=== PATIENT | female | born 1980 | race American Indian/Alaskan Native ===

== ENCOUNTER 2017-07-26 13:45 | Emergency (ER) | payer MEDICAID ==
[2017-07-26 13:53] VITALS: BP 128/92
--- NOTE | 2017-07-26 15:06 | Emergency Department Report ---
Blank Doc - Documentation Documentation: Is 36 showed left neck female who is who states that she has some swelling at her rectum. Patient states something swollen she needs to have this checked out. Patient states she is told this to her [facility]IOR [employer] before but has not had any results as far as treatment.
--- NOTE | 2017-07-26 15:09 | Emergency Department Report ---
ED Female HPI - General Chief complaint: Urogenital-Female Stated complaint: ANAL WARTS Time Seen by Provider: 07/26/17 14:54 Source: patient Mode of arrival: Ambulatory Limitations: No Limitations - History of Present Illness Initial comments: This is a 36-year-old female who presents with complaints of anal warts or hemorrhoids for 3 months. Patient states she went to [facility] on Sunday and they diagnosed her with anal warts. The PROJECT PRODUCT MA[employer]GER had to order equipment to remove them and told patient she will be able to remove them when equipment arrives. Patient reports pain is unbearable and 10/10 on pain scale. She noticed warts are larger than original presentation. She wanted to get a second opinion and possibly have them removed. Admits to small amount of blood that is intermittent. MD Complaint: other (anal warts or hemorroids) -: month(s) (3 months) Location: perineum Radiation: non-radiating Severity: severe Severity scale (0 -10): 8 Quality: aching Consistency: intermittent Improves with: none Worsens with: other (defication) Are you Now?: Yes Last Menstrual Period: 01/24/17 EDC: 10/31/17 Associated Symptoms: denies other symptoms - Related Data Sexually active: Yes : 4 Para: 4 (set of twins) A: 0 Previous Rx's Medication Instructions Recorded Last Taken Type Lidocaine [Lidocaine GEL] 30 gm TP QID PRN #1 tube 07/26/17 Unknown Rx Allergies Allergy/AdvReac Type Severity Reaction Status Date / Time No Known Allergies Allergy Unverified 07/26/17 13:48 ED Review of Systems ROS: Stated complaint: ANAL WARTS Other details as noted in HPI Constitutional: denies: chills, fever Respiratory: denies: cough, shortness of breath, wheezing Cardiovascular: denies: chest pain, palpitations, edema, syncope Gastrointestinal: other. denies: abdominal pain, nausea, vomiting, diarrhea, constipation Genitourinary: denies: urgency, dysuria, discharge Skin: lesions. denies: change in color, change in hair/nails, pruritus ED Past Medical Hx - Past Medical History Previous Medical History?: Yes Additional medical history: Vaginal delivery x 3 - Surgical History Past Surgical History?: No - Social History Smoking Status: Never Smoker Substance Use Type: Prescribed - Medications Home Medications: Home Medications Medication Instructions Recorded Confirmed Last Taken Type Lidocaine [Lidocaine GEL] 30 gm TP QID PRN #1 tube 07/26/17 Unknown Rx ED Physical Exam - General Limitations: No Limitations General appearance: alert, in no apparent distress - Respiratory Respiratory exam: Present: normal lung sounds bilaterally. Absent: respiratory distress - Cardiovascular Cardiovascular Exam: Present: regular rate, normal rhythm, normal heart sounds. Absent: systolic murmur, diastolic murmur, rubs, gallop - Rectal Rectal exam: Present: other (multiple cauliflower like masses, soft, flesh color ) - Neurological Exam Neurological exam: Present: alert, oriented X3, normal gait - Psychiatric Psychiatric exam: Present: normal affect, normal mood - Skin Skin exam: Present: warm, dry, intact, normal color. Absent: rash ED Course Vital Signs 07/26/17 13:49 Temperature 98.4 F Pulse Rate 95 H Respiratory 18 Rate Blood Pressure 128/92 O2 Sat by Pulse 100 Oximetry ED Medical Decision Making - Medical Decision Making This is a 36 y.o. female presents with anal warts for 3 months. She is 24 weeks gestation. Patient was examined by me. Recently diagnosed by [facility] on Sunday. They are ordering material to remove them. Start lidocaine gel for pain relief on condyloma acuminata. Discharged home in stable condition. F/U with [facility] or [facility]. Critical care attestation.: If time is entered above; I have spent that time in minutes in the direct care of this critically ill patient, excluding procedure time. ED Disposition Clinical Impression: Condyloma acuminata Disposition: - TO HOME OR SELFCARE Is pt being admited?: No Does the pt Need Aspirin: No Condition: Stable Instructions: Genital Warts (ED) Additional Instructions: Follow up with [facility] or [facility] for removal of warts. Apply lidocaine gel to area to relieve pain fore times a day. Prescriptions: Lidocaine [Lidocaine GEL] 30 gm TP QID PRN #1 tube PRN Reason: Pain Referrals: TANYA GONZALES MD [Primary Care Provider] - 3-5 Days GIACOMO CISNEROS MD [Staff Physician] - 3-5 Days [facility] [Provider Group] - 3-5 Days [facility] [Provider Group] - 3-5 Days Forms: Work/School Release Form(ED) Time of Disposition: 15:31 Print Language: COMORAN
== END 2017-07-26 15:56 | disposition home or self-care (01) ==
LOC: ED 13:45
DX: O98.312 Other infections with a predominantly sexual mode of transmission complicating pregnancy, second trimester (principal); A63.0 Anogenital (venereal) warts; Z3A.24 24 weeks gestation of pregnancy
CPT/HCPCS: 99282

== ENCOUNTER 2017-10-11 20:19 | Outpatient (CLI) | payer OTHER ==
[2017-10-11] MEDS ORDERED: LACTATED RINGERS 500 ML IV ONE (20:24)
--- NOTE | 2017-10-11 21:07 | Event Note ---
36yo JEFFREY 11/14/17 35 1/7 weeks presents complaining of abdominal discomfort and constipation. She states she feels movement and denies loss of fluid and vaginal bleeding. She has a history of chronic HTN. She has no PIH symptoms. She does describe an episode of melena with straining bowel movement today. Vitals stable BP 130/89 FHT Category I FHT 145 Occasional contractions Cervix FT/50/high Plan 1. UA 2. Monitor for signs of labor 3. Recommend PO hydration, stool softner. 4. Discharge home with labor precautions.
[2017-10-11 21:11] LABS: Bilirubin,Urine NEG (Negative); Blood,Urine NEG (Negative); Color,Urine Yellow (Yellow); Mucus,Urine FEW /HPF; Protein,Urine <15 mg/dL mg/dL (Negative); Urobilinogen,Urine < 2.0 mg/dL (<2.0)
[2017-10-11 21:20] VITALS: BP 152/64
== END 2017-10-11 21:30 | disposition home or self-care (01) ==
LOC: TRG 20:19
PROVIDERS: ATTEND Obstetrics & Gynecology
DX: O26.893 Other specified pregnancy related conditions, third trimester (principal); O16.3 Unspecified maternal hypertension, third trimester; Z3A.36 36 weeks gestation of pregnancy; R10.9 Unspecified abdominal pain
CPT/HCPCS: 59025; 81001

== ENCOUNTER 2017-11-02 04:28 | Inpatient (IN) | payer OTHER ==
--- NOTE | 2017-11-02 05:28 | History and Physical Report ---
History of Present Illness Chief complaint: abdominal pain History of present illness: 37yo 38 2/7 weeks presents to L&D complaining of abdominal pain. She states "I wanted to come get checked before I went to work". Her BPs were noted to be 120-150/70-90s. She complains of a headache starting one day ago. She states she feels her vision seems blurry but it may be because she wasn't wearing her contacts. She reports good movement and denies loss of fluid or vaginal bleeding. 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 - Obstetrical History : 4 Medications and Allergies Allergies Allergy/AdvReac Type Severity Reaction Status Date / Time No Known Allergies Allergy Verified 10/11/17 20:26 Home Medications Medication Instructions Recorded Confirmed Last Taken Type Lidocaine [Lidocaine GEL] 30 gm TP QID #1 tube 07/26/17 Unknown Rx Labetalol [Normodyne TAB] 100 mg PO BID #60 tablet 11/02/17 Unknown Rx - Vital Signs Vital signs: Vital Signs Pulse BP 85 142/86 11/02/17 04:54 11/02/17 04:54 Temp Pulse Resp BP Pulse Ox 81 135/91 11/02/17 05:14 11/02/17 05:14 - Obstetrical FHR: auscultation normal Cervical Dilatation: 0 station: -4 Results Result Diagrams: 11/02/17 05:25 11/02/17 05:25 All other labs normal. Assessment and Plan - Patient Problems (1) 38 weeks gestation of Current Visit: Yes Status: Acute (2) Gestational hypertension Current Visit: Yes Status: Acute Plan to address problem: 1.PIH labs, UA 2. Serial BPs 3. If proteinuria, start 24hr urine for evaluation of preeclampsia 4. BPP for well being.
[2017-11-02 06:02] LABS: Amorphous Crystals,Urine Few; Bacteria,Urine 1+ /HPF (Negative); Bilirubin,Urine NEG (Negative); Blood,Urine NEG (Negative); Color,Urine Yellow (Yellow); Protein,Urine <15 mg/dL mg/dL (Negative); Urobilinogen,Urine < 2.0 mg/dL (<2.0); WBC,Urine < 1.0 /HPF (0.0-6.0)
[2017-11-02 06:15] LABS: Hematocrit 36.1 % (30.3-42.9); Mean Corpuscular HGB Conc 33 % (30-34); Mean Corpuscular Hemoglobin 29 pg (28-32); Mean Corpuscular Volume 87 fl (79-97); Platelet Count 239 K/mm3 (140-440); Red Blood Count 4.13 M/mm3 (3.65-5.03); Red Cell Distribution Width 14.5 % (13.2-15.2)
[2017-11-02 06:36] LABS: Alanine Aminotransferase 12 units/L (7-56); Uric Acid 5.4 mg/dL (3.5-7.6)
[2017-11-02] MEDS ORDERED: TYLENOL PO PRN (08:00)
--- NOTE | 2017-11-02 08:28 | Event Note ---
Date: 11/02/17 I assumed care of above. Essential history this patient is a 37-year-old at ~ 38 weeks gestation who presents with abdominal pain - "I think I'm having contractions". In triage , her blood pressure is noted to be elevated at less than severe range (120-150' s/70-90's); UA shows trace protein and HELLP labs are negative. She does complain of a headache, no scotomata or epigastric discomfort. Review of records shows intermittent elevations of blood pressure less than severe range. Her Goldberg score is unfavorable at this time per Dr. Jones's exam A: Hypertensive D/O of ?Gest HTN ??Pre-E P: -Serial blood pressures -BPP now -Disposition after period of observation
[2017-11-02 09:02] LABS: Amphetamine Screen,Urine PRESUMPTIVE NEGATIVE; Benzodiazepines Screen,Urine PRESUMPTIVE NEGATIVE; Cannabinoid Screen,Urine PRESUMPTIVE NEGATIVE; Cocaine Screen,Urine PRESUMPTIVE NEGATIVE; Methadone Screen,Urine PRESUMPTIVE NEGATIVE; Opiate Screen,Urine PRESUMPTIVE NEGATIVE
--- NOTE | 2017-11-02 09:47 | Ultrasound Report ---
BIOPHYSICAL PROFILE: INDICATION: well being. COMPARISON: None similar at this institution. TECHNIQUE: Transabdominal ultrasound with Doppler interrogation. 2 - breathing movements 2 - movements 2 - posture and tone 2 - Qualitative amniotic fluid volume 8 - TOTAL SCORE OF POSSIBLE 8 Heart Rate (bpm) 138 CONCLUSION: Findings, as above.
[2017-11-02] MEDS: PRENATAL VITAMIN PO SCH (10:02)
[2017-11-02] MEDS: FIORICET PO PRN (12:06)
[2017-11-02] MEDS ORDERED: CERVIDIL VG ONE (14:28)
[2017-11-02] MEDS ORDERED: ZOFRAN IV PRN (14:28)
[2017-11-02] MEDS ORDERED: MINERAL OIL PO PRN (14:28)
[2017-11-02] MEDS ORDERED: XYLOCAINE 2% INFILTRATI ONE (14:28)
[2017-11-02] MEDS ORDERED: BRETHINE IVP PRN (14:28)
[2017-11-02] MEDS ORDERED: BRETHINE SUB-Q PRN (14:28)
[2017-11-02] MEDS ORDERED: PITOCin/NS 30 UNIT/500ML 30 UNITS/500 ML BAG IV SCH (15:00)
[2017-11-02] MEDS ORDERED: PITOCin/NS 20 UNIT/1000ML DRIP 20 UNITS/1,000 ML BAG IV SCH (15:00)
--- NOTE | 2017-11-02 15:53 | Event Note ---
Date: 11/02/17 Late Entry: Patient continues to have elevated BP. Although BP is in the mild range, she now has severe headache not relieved with tylenol. Plan is to proceed with induction of labour. Will consider Mag if BP in severe range or symptoms persistent/worsen.
[2017-11-02] MEDS ORDERED: LACTATED RINGERS 1,000 ML ONE (17:37)
[2017-11-02] MEDS: LACTATED RINGERS 1,000 ML IV SCH (17:45)
[2017-11-03] MEDS ORDERED: LACTATED RINGERS 1,000 ML ONE ×3 (01:24→21:19)
[2017-11-03] MEDS: SUBLIMAZE IV PRN ×5 (01:31→20:44)
[2017-11-03] MEDS: PITOCin/NS 30 UNIT/500ML 30 UNITS/500 ML BAG IV SCH ×4 (09:26→11:26)
[2017-11-03] MEDS: LACTATED RINGERS 1,000 ML IV SCH ×2 (10:16→21:23)
[2017-11-03] MEDS: PRENATAL VITAMIN PO SCH (10:20)
--- NOTE | 2017-11-03 12:11 | Progress Note ---
Assessment and Plan - Patient Problems (1) 38 weeks gestation of Current Visit: Yes Status: Acute (2) Gestational hypertension Current Visit: Yes Status: Acute Qualifiers: Trimester: third trimester Qualified Code(s): O13.3 - Gestational [ -induced] hypertension without significant proteinuria, third trimester Plan to address problem: BPs stable Continue routine BP checks (3) Encounter for induction of labor Current Visit: Yes Status: Acute Plan to address problem: IOL initiated with Cervidil. Inserted 11/02/17 @ 1631; removed 11/03/17 @ 0505 and started on low-dose Pitocin at 0900 Continue routine labor orders Dr. Jones consulted who recommended to discontinue low-dose pit, patient may have a regular diet, take a shower, restart cervical ripening with another Cervidil or cytotec if indicated Subjective - Subjective Date of service: 11/03/17 Principal diagnosis: IUP at 38 weeks 3 days; IOL for gestational HTN Patient reports: movement normal, contractions, other (denies headache, visual disturbances or RUQ pain), no loss of fluid, no vaginal bleeding Objective - Vital Signs Vital Signs: Vital Signs - 12hr 11/03/17 11/03/17 11/03/17 01:31 02:24 02:54 Temperature Pulse Rate 75 64 Respiratory 20 Rate Blood Pressure 114/61 138/94 Blood Pressure [Right] 11/03/17 11/03/17 11/03/17 03:26 03:54 04:24 Temperature Pulse Rate 80 96 H 76 Respiratory Rate Blood Pressure 121/65 135/99 139/64 Blood Pressure [Right] 11/03/17 11/03/17 11/03/17 04:55 05:10 05:25 Temperature Pulse Rate 86 75 Respiratory 20 Rate Blood Pressure 155/81 136/78 Blood Pressure [Right] 11/03/17 11/03/17 11/03/17 05:55 07:50 07:55 Temperature 98.4 F Pulse Rate 65 73 Respiratory 18 18 Rate Blood Pressure 116/68 Blood Pressure 131/86 [Right] 11/03/17 11/03/17 11/03/17 07:59 08:26 08:54 Temperature Pulse Rate 73 71 68 Respiratory Rate Blood Pressure 131/86 137/66 121/76 Blood Pressure [Right] 11/03/17 11/03/17 11/03/17 09:30 09:55 10:25 Temperature Pulse Rate 68 64 71 Respiratory Rate Blood Pressure 135/86 152/81 133/95 Blood Pressure [Right] 11/03/17 11:32 Temperature Pulse Rate 75 Respiratory Rate Blood Pressure 141/81 Blood Pressure [Right] - Exam FHR: auscultation normal, category 1 FHR comments: baseline 135, moderate variability, + accels, no decels Uterine Contraction Monitor Mode: External Cervical Dilatation: 1 (per Dr. Jones) Cervical Effacement Percentage: 60 (per Dr. Jones) station: -4 (per Dr. Jones) Uterine Contraction Frequency (min): 3-6 Uterine Contraction Pattern: Regular - Labs Labs: Abnormal Labs 11/02/17 05:25 Creatinine 0.5 L Laboratory Results - last 24 hr 11/02/17 17:16 Blood Type A POSITIVE Antibody Screen Negative
[2017-11-03] MEDS ORDERED: CYTOTEC PO ONE (14:00)
[2017-11-03] MEDS: CYTOTEC PO SCH (20:07)
[2017-11-04] MEDS: SUBLIMAZE IV PRN ×4 (00:16→19:33)
[2017-11-04] MEDS: CYTOTEC PO SCH (02:23)
[2017-11-04] MEDS ORDERED: LACTATED RINGERS 1,000 ML ONE ×2 (05:34→19:37)
[2017-11-04] MEDS: LACTATED RINGERS 1,000 ML IV SCH ×2 (05:43→19:45)
[2017-11-04] MEDS ORDERED: CYTOTEC VG ONE (06:36)
[2017-11-04] MEDS ORDERED: FLEET PR ONE (06:43)
[2017-11-04] MEDS ORDERED: AMBIEN PO PRN (06:44)
[2017-11-04] MEDS: COLACE PO PRN (06:46)
--- NOTE | 2017-11-04 06:57 | Progress Note ---
Assessment and Plan - Patient Problems (1) 38 weeks gestation of Current Visit: Yes Status: Acute Plan to address problem: INDUCTION DAY #3 - no cervical change Continue augmentation. s/p cervidil, cytotec po and pv, pitocin Cytotec 25mcg PV placed ~645am Constipation - bowel palpated distal to head. Enema ordered. Anticipate . (2) Gestational hypertension Current Visit: Yes Status: Acute Qualifiers: Trimester: third trimester Qualified Code(s): O13.3 - Gestational [ -induced] hypertension without significant proteinuria, third trimester Plan to address problem: BP improved. COOPER resolved. Subjective - Subjective Date of service: 11/04/17 Principal diagnosis: IUP at 38 weeks 3 days; IOL for gestational HTN Interval history: 37yo 38 2/7 weeks presents to L&D complaining of abdominal pain. She states "I wanted to come get checked before I went to work". Her BPs were noted to be 120-150/70-90s. She complains of a headache starting one day ago. She states she feels her vision seems blurry but it may be because she wasn't wearing her contacts. She reports good movement and denies loss of fluid or vaginal bleeding. Patient reports: movement normal, contractions, other (denies headache, visual disturbances or RUQ pain), no loss of fluid, no vaginal bleeding Objective - Vital Signs Vital Signs: Vital Signs - 12hr 11/03/17 11/03/17 11/03/17 19:15 19:19 19:23 Temperature 97.7 F Pulse Rate 75 75 77 Respiratory 18 Rate Blood Pressure 143/82 Blood Pressure 143/82 [Left] O2 Sat by Pulse 73 L Oximetry 11/03/17 11/03/17 11/03/17 19:28 19:29 19:34 Temperature Pulse Rate 76 87 Respiratory Rate Blood Pressure Blood Pressure [Left] O2 Sat by Pulse 94 100 100 Oximetry 11/03/17 11/03/17 11/03/17 19:39 19:44 19:47 Temperature Pulse Rate 81 97 H 101 H Respiratory Rate Blood Pressure Blood Pressure [Left] O2 Sat by Pulse 100 99 84 Oximetry 11/03/17 11/03/17 11/03/17 19:49 19:58 19:59 Temperature Pulse Rate 88 76 Respiratory Rate Blood Pressure Blood Pressure [Left] O2 Sat by Pulse 100 94 100 Oximetry 11/03/17 11/03/17 11/03/17 20:04 20:09 20:12 Temperature Pulse Rate 92 H 88 65 Respiratory Rate Blood Pressure Blood Pressure [Left] O2 Sat by Pulse 100 100 76 L Oximetry 11/03/17 11/03/17 11/03/17 20:14 20:19 20:24 Temperature Pulse Rate 88 88 91 H Respiratory Rate Blood Pressure Blood Pressure [Left] O2 Sat by Pulse 100 100 100 Oximetry 11/03/17 11/03/17 11/03/17 20:29 20:34 20:35 Temperature Pulse Rate 77 84 81 Respiratory Rate Blood Pressure 134/87 Blood Pressure [Left] O2 Sat by Pulse 98 99 75 L Oximetry 11/03/17 11/03/17 11/03/17 20:39 20:42 20:44 Temperature Pulse Rate 86 58 L 114 H Respiratory 18 Rate Blood Pressure Blood Pressure [Left] O2 Sat by Pulse 98 78 L 87 Oximetry 11/03/17 11/03/17 11/03/17 20:48 20:50 20:55 Temperature Pulse Rate 100 H 92 H Respiratory Rate Blood Pressure Blood Pressure [Left] O2 Sat by Pulse 77 L 67 L 100 Oximetry 11/03/17 11/03/17 11/03/17 21:00 21:05 21:10 Temperature Pulse Rate 79 74 75 Respiratory Rate Blood Pressure Blood Pressure [Left] O2 Sat by Pulse 99 99 98 Oximetry 11/03/17 11/03/17 11/03/17 21:11 21:15 21:20 Temperature Pulse Rate 86 74 86 Respiratory Rate Blood Pressure Blood Pressure [Left] O2 Sat by Pulse 94 99 100 Oximetry 11/03/17 11/03/17 11/03/17 21:25 21:29 21:30 Temperature Pulse Rate 88 93 H 77 Respiratory Rate Blood Pressure 156/69 Blood Pressure [Left] O2 Sat by Pulse 99 93 93 Oximetry 11/03/17 11/03/17 11/03/17 21:35 21:40 21:45 Temperature Pulse Rate 71 64 66 Respiratory Rate Blood Pressure Blood Pressure [Left] O2 Sat by Pulse 99 100 100 Oximetry 11/03/17 11/03/17 11/03/17 21:50 21:55 22:00 Temperature Pulse Rate 67 71 69 Respiratory Rate Blood Pressure Blood Pressure [Left] O2 Sat by Pulse 100 100 100 Oximetry 11/03/17 11/03/17 11/03/17 22:05 22:10 22:15 Temperature Pulse Rate 85 92 H 86 Respiratory Rate Blood Pressure Blood Pressure [Left] O2 Sat by Pulse 100 100 100 Oximetry 11/03/17 11/03/17 11/03/17 22:20 22:23 22:28 Temperature Pulse Rate 65 75 Respiratory Rate Blood Pressure Blood Pressure [Left] O2 Sat by Pulse 86 67 L 100 Oximetry 11/03/17 11/03/17 11/03/17 22:29 22:33 22:38 Temperature Pulse Rate 76 77 82 Respiratory Rate Blood Pressure 133/78 Blood Pressure [Left] O2 Sat by Pulse 99 99 Oximetry 11/03/17 11/03/17 11/03/17 22:43 22:48 22:53 Temperature Pulse Rate 82 85 95 H Respiratory Rate Blood Pressure Blood Pressure [Left] O2 Sat by Pulse 99 99 99 Oximetry 11/03/17 11/03/17 11/03/17 22:58 23:03 23:08 Temperature Pulse Rate 90 87 79 Respiratory Rate Blood Pressure Blood Pressure [Left] O2 Sat by Pulse 99 98 100 Oximetry 11/03/17 11/03/17 11/03/17 23:13 23:18 23:23 Temperature Pulse Rate 93 H 88 89 Respiratory Rate Blood Pressure Blood Pressure [Left] O2 Sat by Pulse 99 99 98 Oximetry 11/03/17 11/03/17 11/03/17 23:28 23:30 23:33 Temperature Pulse Rate 116 H 77 80 Respiratory Rate Blood Pressure 132/63 Blood Pressure [Left] O2 Sat by Pulse 99 97 Oximetry 11/03/17 11/03/17 11/03/17 23:38 23:43 23:45 Temperature Pulse Rate 112 H 103 H 97 H Respiratory Rate Blood Pressure Blood Pressure [Left] O2 Sat by Pulse 98 98 93 Oximetry 11/03/17 11/03/17 11/03/17 23:48 23:53 23:58 Temperature Pulse Rate 99 H 88 102 H Respiratory Rate Blood Pressure Blood Pressure [Left] O2 Sat by Pulse 98 98 100 Oximetry 11/04/17 11/04/17 11/04/17 00:03 00:08 00:09 Temperature Pulse Rate 76 80 159 H Respiratory Rate Blood Pressure Blood Pressure [Left] O2 Sat by Pulse 97 97 82 L Oximetry 11/04/17 11/04/17 11/04/17 00:14 00:16 00:19 Temperature Pulse Rate 91 H 87 Respiratory 18 Rate Blood Pressure Blood Pressure [Left] O2 Sat by Pulse 99 100 Oximetry 11/04/17 11/04/17 11/04/17 00:24 00:29 00:34 Temperature Pulse Rate 83 75 78 Respiratory Rate Blood Pressure 126/69 Blood Pressure [Left] O2 Sat by Pulse 100 98 98 Oximetry 11/04/17 11/04/17 11/04/17 00:39 00:44 00:46 Temperature Pulse Rate 71 81 Respiratory 18 Rate Blood Pressure Blood Pressure [Left] O2 Sat by Pulse 98 99 Oximetry 11/04/17 11/04/17 11/04/17 00:49 00:54 00:59 Temperature Pulse Rate 80 78 Respiratory Rate Blood Pressure Blood Pressure [Left] O2 Sat by Pulse 85 98 100 Oximetry 11/04/17 11/04/17 11/04/17 02:59 03:04 03:06 Temperature Pulse Rate 90 Respiratory Rate Blood Pressure Blood Pressure [Left] O2 Sat by Pulse 88 37 L 30 L Oximetry - Exam FHR: category 1 Cervical Dilatation: 1 Cervical Effacement Percentage: 50 station: high Uterine Contraction Pattern: Irregular - Labs Labs: Abnormal Labs 11/02/17 05:25 Creatinine 0.5 L
[2017-11-04] MEDS: FIORICET PO PRN (08:43)
[2017-11-04] MEDS: PRENATAL VITAMIN PO SCH (09:20)
[2017-11-04] MEDS ORDERED: BENADRYL IV ONE (09:57)
--- NOTE | 2017-11-04 13:28 | Progress Note ---
Assessment and Plan (1) 38 weeks gestation of Current Visit: Yes Status: Acute Plan to address problem: INDUCTION DAY #3 - no cervical change Continue augmentation. Co-managed with Dr. Jones s/p cervidil, cytotec pv, pitocin Cytotec 25mcg PV placed ~645am Increase Cytotec 50mcg PV Q6 Anticipate . (2) Gestational hypertension Current Visit: Yes Status: Acute Qualifiers: Trimester: third trimester Qualified Code(s): O13.3 - Gestational [ -induced] hypertension without significant proteinuria, third trimester Plan to address problem: BP improved. COOPER resolved. Subjective - Subjective Date of service: 11/04/17 Principal diagnosis: IUP at 38 weeks 3 days; IOL for gestational HTN Patient reports: movement normal, contractions, other (denies headache, visual disturbances or RUQ pain), no loss of fluid, no vaginal bleeding Objective - Vital Signs Vital Signs: Vital Signs - 12hr 11/04/17 11/04/17 11/04/17 02:59 03:04 03:06 Temperature Pulse Rate 90 Blood Pressure O2 Sat by Pulse 88 37 L 30 L Oximetry 11/04/17 11/04/17 11/04/17 04:22 07:24 08:00 Temperature 98.3 F Pulse Rate 75 Blood Pressure 128/84 O2 Sat by Pulse 84 Oximetry 11/04/17 11/04/17 11/04/17 12:04 12:07 12:15 Temperature 98.3 F Pulse Rate 80 93 H Blood Pressure 144/74 O2 Sat by Pulse 82 L Oximetry - Exam Breasts: normal Cardiovascular: Regular rate, Normal S1, Normal S2, No murmurs Lungs: Clear to auscultation, Normal air movement Abdomen: Present: normal appearance, soft. Absent: distention, tenderness Vulva: both: normal Uterus: Present: normal, other (Gravid) FHR: category 1 Uterine Contraction Monitor Mode: External Cervical Dilatation: 1 (Per RN) Cervical Effacement Percentage: 50 station: -3 Uterine Contraction Pattern: Irregular Uterine Tone Measurement Phase: Resting Uterine Contraction Intensity: Mild Extremities: normal Deep Tendon Reflex Grade: Normal +2 - Labs Labs: Abnormal Labs 11/02/17 05:25 Creatinine 0.5 L
[2017-11-04] MEDS: PITOCin/NS 30 UNIT/500ML 30 UNITS/500 ML BAG IV SCH ×4 (15:30→17:03)
--- NOTE | 2017-11-04 15:53 | Progress Note ---
Assessment and Plan (1) 38 weeks gestation of Current Visit: Yes Status: Acute Plan to address problem: INDUCTION DAY #3 - no cervical change Continue augmentation. Co-managed with Dr. Jones s/p cervidil, cytotec pv, pitocin Category 1 tracing GBS positive: start Prophylaxis Cooks catheter placed at 15:23 Resume Pitocin Augmentation Anticipate . (2) Gestational hypertension Current Visit: Yes Status: Acute Qualifiers: Trimester: third trimester Qualified Code(s): O13.3 - Gestational [ -induced] hypertension without significant proteinuria, third trimester Plan to address problem: BP improved. Subjective - Subjective Date of service: 11/04/17 (0603) Principal diagnosis: IUP at 38 weeks 3 days; IOL for gestational HTN Patient reports: movement normal, contractions, other (Headache), no loss of fluid, no vaginal bleeding Objective - Vital Signs Vital Signs: Vital Signs - 12hr 11/04/17 11/04/17 11/04/17 04:22 07:24 08:00 Temperature 98.3 F Pulse Rate 75 Respiratory Rate Blood Pressure 128/84 Blood Pressure [Left] O2 Sat by Pulse 84 Oximetry 11/04/17 11/04/17 11/04/17 12:04 12:07 12:15 Temperature 98.3 F Pulse Rate 80 93 H Respiratory Rate Blood Pressure 144/74 Blood Pressure [Left] O2 Sat by Pulse 82 L Oximetry 11/04/17 11/04/17 11/04/17 14:44 14:48 15:27 Temperature Pulse Rate 83 83 Respiratory 18 Rate Blood Pressure 132/79 Blood Pressure 132/79 [Left] O2 Sat by Pulse 91 Oximetry 11/04/17 15:30 Temperature Pulse Rate 81 Respiratory Rate Blood Pressure 154/76 Blood Pressure [Left] O2 Sat by Pulse Oximetry - Exam Breasts: normal Cardiovascular: Regular rate, Normal S1, Normal S2, No murmurs Lungs: Normal air movement Abdomen: Present: normal appearance, soft, normal bowel sounds. Absent: distention, tenderness Vulva: both: normal Uterus: Present: other (gravid) FHR: category 1 Uterine Contraction Monitor Mode: External Cervical Dilatation: 1.5 (Cooks catheter inserted in gentle fashion, 80ml NS to Uterine and Vaginal bulb. Pt tolerated well. ) Cervical Effacement Percentage: 70 station: -4 Uterine Contraction Pattern: Irregular Uterine Tone Measurement Phase: Resting Extremities: normal Deep Tendon Reflex Grade: Normal +2 - Labs Labs: Abnormal Labs 11/02/17 05:25 Creatinine 0.5 L
[2017-11-04] MEDS ORDERED: POLYCILLIN/NS 2 GM/100 ML 2 GM/100 ML BAG IV ONE (16:00)
--- NOTE | 2017-11-04 18:32 | Ultrasound Report ---
FINAL REPORT EXAM: US OB LIMITED HISTORY: presentation TECHNIQUE: Limited Grayscale and M-mode imaging for the purpose of evaluation of presentation. Comparison: None FINDINGS: heart rate is measured at 131 beats per minute. Presentation is demonstrated to be cephalic. IMPRESSION: 1. Limited imaging demonstrates cephalic position with heart rate measured at 131 beats per minute.
[2017-11-04] MEDS ORDERED: AMPICILLIN/NS 1 GM/50 ML 1 GM/50 ML BAG IV SCH (20:00)
[2017-11-04] MEDS ORDERED: PITOCin/NS 20 UNIT/1000ML DRIP 20,000 MILLIUNITS/1,000 ML BAG IV ONE ×2 (20:04→21:46)
--- NOTE | 2017-11-04 20:43 | Procedure Note ---
OB Delivery Note - Delivery Date of Delivery: 11/04/17 Surgeon: SHENA ZAMBRANO Estimated blood loss: other (150cc) - Vaginal Delivery presentation: vertex Delivery position: OA Intrapartum events: preeclampsia (mild, no severe features) Delivery induction: other (misoprostol, cervidil, oxytocin) Delivery monitor: external FHT Route of delivery: Delivery placenta: spontaneous Delivery cord: 3 umbilical vessels, other (body cord) Episiotomy: none Delivery laceration: none - Infant A at 1 minute: 8 at 5 minutes: 9 Gender: Male (Weight 6lb 8oz, spontaneous cry)
[2017-11-04] MEDS ORDERED: TUCKS PAD TP PRN (20:45)
[2017-11-04] MEDS ORDERED: MILK OF MAGNESIA PO PRN (20:45)
[2017-11-04] MEDS ORDERED: TYLENOL PO PRN (20:45)
[2017-11-04] MEDS ORDERED: PHENERGAN PO PRN (20:45)
[2017-11-04] MEDS ORDERED: DULCOLAX PR PRN (20:45)
[2017-11-04] MEDS ORDERED: ZOFRAN IV PRN (20:45)
[2017-11-04] MEDS ORDERED: LANSINOH TP PRN (20:45)
[2017-11-04] MEDS ORDERED: SODIUM CHLORIDE FLUSH SYRINGE 10 ML IV NR (21:00)
[2017-11-04] MEDS ORDERED: BENADRYL PO SCH (22:00)
[2017-11-04] MEDS: MOTRIN PO SCH (22:34)
[2017-11-04] MEDS: NORCO 5/325 PO PRN (22:34)
[2017-11-05] MEDS: MOTRIN PO SCH ×4 (05:56→17:23)
[2017-11-05] MEDS: NORCO 5/325 PO PRN ×2 (06:02→22:58)
[2017-11-05 06:54] LABS: Basophils # (Auto) 0.1 K/mm3 (0.0-0.1); Basophils % (Auto) 0.6 % (0.0-1.8); Eosinophils % (Auto) 0.1 % (0.0-4.3); Hematocrit 36.5 % (30.3-42.9); Lymphocytes # (Auto) 2.3 K/mm3 (1.2-5.4); Lymphocytes % (Auto) 16.5 % (13.4-35.0); Mean Corpuscular HGB Conc 33 % (30-34); Mean Corpuscular Hemoglobin 29 pg (28-32); Mean Corpuscular Volume 88 fl (79-97); Monocytes # (Auto) 0.9 K/mm3 (0.0-0.8); Monocytes % (Auto) 6.6 % (0.0-7.3); Platelet Count 222 K/mm3 (140-440); Red Blood Count 4.17 M/mm3 (3.65-5.03); Red Cell Distribution Width 14.5 % (13.2-15.2)
[2017-11-05 07:14] LABS: Uric Acid 4.5 mg/dL (3.5-7.6)
[2017-11-05 09:18] LABS: Hematocrit 33.8 % (30.3-42.9); Hemoglobin 11.3 gm/dl (10.1-14.3)
[2017-11-05] MEDS: PRENATAL VITAMIN PO SCH (12:05)
[2017-11-05] MEDS: COLACE PO PRN (12:06)
--- NOTE | 2017-11-05 14:00 | Progress Note ---
Assessment and Plan - Patient Problems (1) Status post normal vaginal delivery Current Visit: Yes Status: Acute Plan to address problem: PPD 1 - stable Continue routine labor orders Discharge to home later today Follow-up at [facility] in 2 weeks for BP check Subjective - Subjective Date of service: 11/05/17 Principal diagnosis: s/p , PPD 1 Patient reports: appetite normal, voiding normally, pain well controlled, ambulating normally, other (denies headache, visual disturbances or RUQ pain) : doing well, bottle feeding Objective - Vital Signs Latest vital signs: Vital Signs Temp Pulse Resp BP BP Pulse Ox 11/05/17 10:00 98.3 F 84 18 126/79 11/05/17 06:38 18 11/05/17 06:02 18 11/05/17 05:56 18 11/05/17 05:08 98.3 F 67 18 139/80 11/05/17 00:32 98.7 F 82 16 131/76 98 11/04/17 23:34 18 11/04/17 22:34 18 11/04/17 22:23 98.8 F 95 H 18 140/85 11/04/17 21:30 98.4 F 11/04/17 21:23 108 H 145/80 11/04/17 20:26 86 11/04/17 20:24 126 H 139/83 11/04/17 19:53 81 161/83 11/04/17 19:38 85 167/99 11/04/17 19:15 98.2 F 16 11/04/17 18:03 73 145/86 11/04/17 17:33 100 H 146/111 11/04/17 17:08 82 146/92 11/04/17 16:47 125 H 0 L 11/04/17 16:44 75 135/87 11/04/17 16:14 62 L 11/04/17 16:13 72 133/67 11/04/17 16:08 98.4 F 72 18 133/67 11/04/17 15:30 81 154/76 11/04/17 15:27 91 11/04/17 14:48 83 132/79 11/04/17 14:44 83 18 132/79 Intake and Output 11/04/17 11/05/17 11/05/17 23:59 07:59 15:59 Intake Total 11.333 720 Output Total 200 800 Balance -188.667 -80 Intake: IV 11.333 PITOCin/NS 30 UNIT/500ML 11.333 30 units In 500 ml @ 1 MILLIUNITS/MIN 1 mls/hr IV TITR KAI Rx#:[id number] Intake, Free Water 720 Output: Urine 200 800 Void 200 800 Other: Total, Output Amount 200 500 # Voids Void 1 Estimated Blood Loss 150 - Exam Abdomen: Present: normal appearance, soft Vulva: both: normal Uterus: Present: normal, firm, fundal height at umbilicus Extremities: Present: normal - Labs Labs: Abnormal lab results 11/05/17 11/05/17 Range/Units 05:42 05:42 WBC 14.2 H (4.5-11.0) K/mm3 [place] # 0.9 H (0.0-0.8) K/mm3 Seg Neutrophils % 76.2 H (40.0-70.0) % Seg Neutrophils # 10.8 H (1.8-7.7) K/mm3 Creatinine 0.4 L (0.7-1.2) mg/dL Lactate Dehydrogenase 193 H (91-180) units/L
--- NOTE | 2017-11-05 14:15 | Discharge Summary ---
Providers - Providers Date of Admission: 11/02/17 07:07 Date of discharge: 11/05/17 Attending physician: JOSE KING MD Primary care physician: JOSE KING MD Hospitalization Reason for admission: induction of labor, IUP at term Delivery: Episiotomy: none Laceration: none Other procedures: none complications: none Discharge diagnosis: IUP at term delivered [place] baby: male Hospital course: Uncomplicated Condition at discharge: Stable Disposition: DC-01 TO HOME OR SELFCARE - Discharge Diagnoses (1) Status post normal vaginal delivery Status: Acute Plan - Discharge Medications Prescriptions: Labetalol [Normodyne TAB] 100 mg PO BID #60 tablet - Provider Discharge Summary Activity: routine, no sex for 6 weeks, no heavy lifting 4 weeks, no strenuous exercise Diet: routine Instructions: routine Additional instructions: [] Smoking cessation referral if applicable(refer to patient education folder for contact #) [] Refer to [facility] Booklet Call your doctor immediately for: * Fever > 100.5 * Heavy vaginal bleeding ( >1 pad per hour) * Severe persistent headache * Shortness of breath * Reddened, hot, painful area to leg or breast * Drainage or odor from incision. * Keep incision clean and dry at all times and follow doctor's instructions regarding bathing/showering - Follow up plan Follow up: JOSE KING MD [Primary Care Provider] - 14 Days (Follow-up at [facility] in 2 weeks for BP check)
[2017-11-06] MEDS: MOTRIN PO SCH ×4 (00:30→18:51)
[2017-11-06] MEDS: PRENATAL VITAMIN PO SCH (11:13)
[2017-11-06 16:45] VITALS: BP 138/92
== END 2017-11-06 21:30 | disposition home or self-care (01) | DRG 774 ==
LOC: TRG 04:28 → LD 07:07 → OBSVTOIN 07:07 → TRG 07:47 → UNDOADMOB 07:49 → LD 07:49 → UNDODISOB 15:11 → LD 21:48 → OB 11-04 22:05
PROVIDERS: ADMIT Obstetrics & Gynecology; ATTEND Obstetrics & Gynecology
PROC: 10E0XZZ Delivery of Products of Conception, External Approach (ICD-10-PCS; principal; 2017-11-04)
PROC: 3E033VJ Introduction of Other Hormone into Peripheral Vein, Percutaneous Approach (ICD-10-PCS; 2017-11-04)
PROC: 3E0P7VZ Introduction of Hormone into Female Reproductive, Via Natural or Artificial Opening (ICD-10-PCS; 2017-11-04)
DX: O99.824 Streptococcus B carrier state complicating childbirth (principal); O11.4 Pre-existing hypertension with pre-eclampsia, complicating childbirth; O69.89X0 Labor and delivery complicated by other cord complications, not applicable or unspecified; O75.89 Other specified complications of labor and delivery; K59.00 Constipation, unspecified; O74.5 Spinal and epidural anesthesia-induced headache during labor and delivery; Z3A.38 38 weeks gestation of pregnancy; Z37.0 Single live birth
CPT/HCPCS: 36415; 59200; 76815; 76819; 80307; 81001; 82565; 83615; 84450; 84460; 84550; 85014; 85018; 85025; 85027; 86850; 86900; 86901; J0290; J1200; J2590; J3010; J7120